=== PATIENT | male | born 1945 | race Caucasian/White ===

== ENCOUNTER → 2017-05-17 | Outpatient (CLI) | payer SELFPAY ==
--- NOTE | 2017-05-17 14:48 | XR ---
EXAMINATION TYPE: XR chest 2V DATE OF EXAM: 05/17/2017 COMPARISON: Prior chest x-ray 04/17/2011 HISTORY: Abnormal weight loss, hypertension, smoker TECHNIQUE: Frontal and lateral views of the chest are obtained. FINDINGS: Again noted is a spinal curvature. Cardiomediastinal silhouette, pulmonary vascularity and epifanio are stable. There is eventration of the right hemidiaphragm. No airspace disease, pneumothorax, or pleural effusion is evident. Postop changes noted to the abdomen. IMPRESSION: No acute cardiopulmonary process.
== END | disposition home or self-care (01) ==
LOC: RADXRYALE 11:25
PROVIDERS: ATTEND Family Medicine
DX: I10 Essential (primary) hypertension (principal); R63.4 Abnormal weight loss; F17.200 Nicotine dependence, unspecified, uncomplicated
CPT/HCPCS: 71046

== ENCOUNTER 2017-07-04 17:25 | Inpatient (IN) | payer OTHER ==
[2017-07-04] MEDS ORDERED: ACETAMINOPHEN TAB 500 MG TAB PO STA (18:07)
[2017-07-04] MEDS ORDERED: SODIUM CHLORIDE 0.9% 500 ML IV STA (18:07)
[2017-07-04] MEDS ORDERED: IBUPROFEN 600 MG TAB PO STA (18:07)
[2017-07-04] MEDS ORDERED: SODIUM CHLORIDE 0.9% 1,000 ML IV STA ×2 (18:07)
[2017-07-04 18:44] LABS: Basophils % (A) 0 %; Eosinophils % (A) 1 %; HGB 11.3 gm/dL (13.0-17.5); Lymphocytes % (A) 20 %; MCH 26.3 pg (25.0-35.0); MCHC 33.1 g/dL (31.0-37.0); Mean Platelet Volume 7.8; Monocytes # (A) 0.4 k/uL (0-1.0); Monocytes % (A) 8 %; Neutrophils # (A) 3.4 k/uL (1.3-7.7); Neutrophils % (A) 69 %; RBC 4.27 m/uL (4.30-5.90); RDW 14.6 % (11.5-15.5); WBC 4.9 k/uL (3.8-10.6)
[2017-07-04 18:48] LABS: Albumin 3.7 g/dL (3.5-5.0); Calcium 9.2 mg/dL (8.4-10.2); Magnesium 2.1 mg/dL (1.6-2.3); Phosphorus 3.9 mg/dL (2.5-4.5); Potassium 4.6 mmol/L (3.5-5.1); Total Bilirubin 0.7 mg/dL (0.2-1.3); Total Protein 8.5 g/dL (6.3-8.2)
[2017-07-04 18:51] LABS: MCV 79.6 fL (80.0-100.0); Platelet Count 276 k/uL (150-450)
[2017-07-04 19:03] LABS: Creatine Kinase 81 U/L (55-170)
[2017-07-04 19:16] LABS: Creatine Kinase MB <0.2 ng/mL (0.0-2.4); Troponin I 0.013 ng/mL (0.000-0.034)
[2017-07-04 19:29] LABS: INR 1.1 (<1.2); Partial Thromboplastin Time 25.3 sec (22.0-30.0); Prothrombin Time 10.7 sec (9.0-12.0)
--- NOTE | 2017-07-04 19:38 | XR ---
EXAMINATION TYPE: XR chest 2V DATE OF EXAM: 07/04/2017 COMPARISON: 05/17/2017 HISTORY: Chest pain TECHNIQUE: Frontal and lateral views of the chest are obtained. FINDINGS: There is no heart failure nor confluent pneumonic infiltrate. Heart appears borderline enl arged. Bony thorax is intact. There are chest leads. IMPRESSION: Borderline cardiomegaly. Atheromatous aorta. No active cardiopulmonary disease. No fuentes e.
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
[2017-07-04] MEDS ORDERED: LEVOFLOXACIN 750MG-D5W PMX 750 MG in DEXTROSE/WATER 1 150ML.BAG IVPB STA (20:08)
[2017-07-04 22:11] LABS: Amorphous Sediment,Urine Rare /hpf; Appearance,Urine Cloudy (Clear); Bacteria,Urine Moderate /hpf; Bilirubin,Urine Negative (Negative); Blood,Urine Moderate (Negative); Color,Urine Yellow; Glucose,Urine (UA) Negative (Negative); Granular Casts,Urine 3 /lpf (0); Hyaline Casts,Urine 7 /lpf (0-2); Ketones,Urine Negative (Negative); Leukocyte Esterase,Urine Large (Negative); Mucus,Urine Few /hpf; Nitrite,Urine Positive (Negative); PH, Urine 5.5 (5.0-8.0); Protein,Urine 1+ (Negative); Specific Gravity,Urine 1.014 (1.001-1.035); Urobilinogen,Urine <2.0 mg/dL (<2.0); WBC,Urine 22 /hpf (0-5)
[2017-07-05] MEDS: SODIUM CHLORIDE 0.9% 1,000 ML IV SCH ×5 (02:36→19:57)
[2017-07-05] MEDS ORDERED: PANTOPRAZOLE 40 MG/10 ML VIAL IV SCH (09:00)
[2017-07-05] MEDS: ENOXAPARIN 40 MG/0.4 ML SYRINGE SQ SCH (09:27)
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
[2017-07-05] MEDS: LEVOFLOXACIN 750 MG TAB PO SCH (20:41)
[2017-07-05] MEDS ORDERED: LEVOFLOXACIN 750MG-D5W PMX 750 MG in DEXTROSE/WATER 1 150ML.BAG IVPB SCH (21:00)
[2017-07-06] MEDS: SODIUM CHLORIDE 0.9% 1,000 ML IV SCH ×4 (07:19→21:15)
[2017-07-06] MEDS: PANTOPRAZOLE 40 MG TABLET PO SCH (07:20)
[2017-07-06 07:52] LABS: Basophils % (A) 1 %; Eosinophils % (A) 1 %; HCT 27.1 % (39.0-53.0); Lymphocytes # (A) 0.9 k/uL (1.0-4.8); Lymphocytes % (A) 31 %; MCH 26.6 pg (25.0-35.0); MCHC 33.3 g/dL (31.0-37.0); MCV 80.1 fL (80.0-100.0); Monocytes # (A) 0.2 k/uL (0-1.0); Monocytes % (A) 8 %; Neutrophils # (A) 1.6 k/uL (1.3-7.7); Neutrophils % (A) 56 %; Platelet Count 182 k/uL (150-450); RBC 3.39 m/uL (4.30-5.90); RDW 14.7 % (11.5-15.5); WBC 2.9 k/uL (3.8-10.6)
[2017-07-06 08:02] LABS: Potassium 3.9 mmol/L (3.5-5.1)
--- NOTE | 2017-07-06 09:02 | P.PN ---
Subjective Progress Note Date: 07/06/17 Patient is seen and examined by me at bedside No new complaints Objective - Vital Signs Vital signs: Vital Signs Temp 97.6 F 07/06/17 07:00 Pulse 59 L 07/06/17 07:59 Resp 17 07/06/17 07:00 BP 102/64 07/06/17 07:00 Pulse Ox 96 07/06/17 07:00 Intake & Output 07/05/17 07/06/17 07/06/17 18:59 06:59 18:59 Intake Total 1350 1725 Output Total 800 900 Balance 1350 925 -900 Weight 61.689 kg 61.689 kg Intake: Intake, IV Titration 1350 1725 Amount Levofloxacin 750Mg-D5w 150 Pmx 750 mg In Dextrose/ Water 1 150ml.bag @ 100 mls/hr IVPB Q24H [facility] Rx#: [id number] Sodium Chloride 0.9% 1, 1200 1725 000 ml @ 150 mls/hr IV . Q6H40M [facility] Rx#:[id number] Output: Urine 800 900 Other: Voiding Method Toilet Toilet Toilet Urinal Urinal Urinal # Voids 1 # Bowel Movements 0 -Constitutional: No acute distress, conversant, pleasant. Lethargic, alert awake oriented 3 Eyes: Anicteric sclerae, moist conjunctiva, no lid-lag PERRLA ENMT: NC/AT -Oropharynx clear, no erythema, exudates, dry mucous membranes Neck: Supple, FROM, no masses, or JVD No carotid bruits No thyromegaly Lungs: Clear to auscultation Clear to percussion Normal respiratory effort, no accessory muscle use Cardiovascular: Heart regular in rate and rhythm, No murmurs, gallops, or rubs No peripheral edema Abdominal: Soft Nontender, no guarding, rebound or rigidity Abdomen moving with respiration Normoactive bowel sounds No hepatomegaly, No splenomegaly No palpable mass Rectal exam done after patient gave verbal consent shows strong anal tone, no mass, no fecal impaction, no active bleeding No abdominal wall hernia noted Skin: Normal temperature, tone, texture, turgor No induration No subcutaneous nodules No rash, lesions No ulcers Extremities: No digital cyanosis No clubbing Pedal pulses intact and symmetrical Radial pulses intact and symmetrical Normal gait and station No calf tenderness Psychiatric: Alert and oriented to person, place and time Appropriate affect Intact judgement Neuro: Muscles Strength 5/5 in all 4 extremities, normal symmetry is noted between any of the 4 extremities Sensation to light touch grossly present throughout Cranial nerves II-XII grossly intact No focal sensory deficits Musculoskeletal no back tenderness, no tenderness noted in any part of his extremities or trunk - Labs CBC & Chem 7: 07/06/17 07:26 07/06/17 07:26 Labs: Abnormal Lab Results - Last 24 Hours (Table) 07/06/17 07/06/17 Range/Units 07:26 07:26 WBC 2.9 L (3.8-10.6) k/uL RBC 3.39 L (4.30-5.90) m/uL Hgb 9.0 L D (13.0-17.5) gm/dL Hct 27.1 L (39.0-53.0) % Lymphocytes # 0.9 L (1.0-4.8) k/uL Chloride 113 H (98-107) mmol/L Carbon Dioxide 21 L (22-30) mmol/L Calcium 8.0 L (8.4-10.2) mg/dL Microbiology - Last 24 Hours (Table) 07/04/17 18:48 Blood Culture Gram Stain - Preliminary Blood 07/04/17 18:48 Blood Culture - Final Blood 07/04/17 22:00 Urine Culture - Preliminary Urine,Catheterized Assessment and Plan Assessment: 1. UTI, continue witH levofloxacin, positive blood culture for gram-positive cocci possible contamination, recheck blood culture, no leukocytosis, pending ID consult, repeat blood cultures pending 2. Patient has reactive HIV test from 05/17/17, pending ID consults His leukopenia of 2.9 most likely related to his infection with HIV and UTI, continue to monitor 3. Acute kidney injury with creatinine went up from 1to 1.3, now is down to 1.14 [with an normal limits] continue with IV fluids and decrease the rate from 1 50 mL/h 200 mL per hour Pending PT/OT DVT prophylaxis continue with Lovenox
[2017-07-06] MEDS: ENOXAPARIN 40 MG/0.4 ML SYRINGE SQ SCH (09:13)
[2017-07-06] MEDS ORDERED: SODIUM CHLORIDE 0.9% 1,000 ML IV SCH (09:15)
[2017-07-06] MEDS: DAPTOmycin 500 MG in SODIUM CHLORIDE 0.9% 50 ML IV SCH (16:35)
[2017-07-06] MEDS: LEVOFLOXACIN 750 MG TAB PO SCH (21:15)
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
[2017-07-07] MEDS: SODIUM CHLORIDE 0.9% 1,000 ML IV SCH ×2 (07:28→17:05)
[2017-07-07 07:30] LABS: Basophils % (A) 0 %; Eosinophils # (A) 0.1 k/uL (0-0.7); Eosinophils % (A) 2 %; HCT 27.6 % (39.0-53.0); Lymphocytes # (A) 0.8 k/uL (1.0-4.8); Lymphocytes % (A) 31 %; MCH 26.7 pg (25.0-35.0); MCHC 32.5 g/dL (31.0-37.0); MCV 82.1 fL (80.0-100.0); Mean Platelet Volume 7.1; Monocytes # (A) 0.2 k/uL (0-1.0); Monocytes % (A) 7 %; Neutrophils # (A) 1.5 k/uL (1.3-7.7); Neutrophils % (A) 57 %; Platelet Count 206 k/uL (150-450); Poikilocytosis Slight; RBC 3.36 m/uL (4.30-5.90); WBC 2.6 k/uL (3.8-10.6)
[2017-07-07 07:41] LABS: Anion Gap 10 mmol/L; Blood Urea Nitrogen 18 mg/dL (9-20); Calcium 8.1 mg/dL (8.4-10.2); Carbon Dioxide 20 mmol/L (22-30); Chloride 114 mmol/L (98-107); Glucose 85 mg/dL (74-99); Potassium 3.7 mmol/L (3.5-5.1); Sodium 144 mmol/L (137-145)
[2017-07-07] MEDS: STRIBILD PO SCH (08:09)
[2017-07-07] MEDS: PANTOPRAZOLE 40 MG TABLET PO SCH (08:13)
[2017-07-07] MEDS: ENOXAPARIN 40 MG/0.4 ML SYRINGE SQ SCH (08:13)
--- NOTE | 2017-07-07 09:08 | P.PN ---
Subjective Progress Note Date: 07/07/17 Patient is seen and examined by me at bedside No new complaints, patient is still feeling weak Objective - Vital Signs Vital signs: Vital Signs Temp 98.1 F 07/07/17 07:00 Pulse 60 07/07/17 08:00 Resp 16 07/07/17 08:00 BP 163/61 07/07/17 07:00 Pulse Ox 95 07/07/17 07:00 Intake & Output 07/06/17 07/07/17 07/07/17 18:59 06:59 18:59 Intake Total 1780 1400 Output Total 1500 500 400 Balance 280 900 -400 Weight 61.689 kg 61.689 kg Intake: Intake, IV Titration 1300 800 Amount Levofloxacin 750Mg-D5w 100 Pmx 750 mg In Dextrose/ Water 1 150ml.bag @ 100 mls/hr IVPB Q24H [facility] Rx#: [id number] Sodium Chloride 0.9% 1, 1200 800 000 ml @ 100 mls/hr IV . Q10H [facility] Rx#:[id number] Oral 480 600 Output: Urine 1500 500 400 Other: Voiding Method Toilet Toilet Toilet Urinal Urinal Urinal # Voids 3 2 1 # Bowel Movements 2 1 - Exam Constitutional: No acute distress, conversant, pleasant Eyes: Anicteric sclerae, moist conjunctiva, no lid-lag PERRLA ENMT: NC/AT Oropharynx clear, no erythema, exudates Neck: Supple, FROM, no masses, or JVD No carotid bruits No thyromegaly Lungs: Clear to auscultation Clear to percussion Normal respiratory effort, no accessory muscle use Cardiovascular: Heart regular in rate and rhythm, No murmurs, gallops, or rubs No peripheral edema Abdominal: Soft Nontender, no guarding, rebound or rigidity Abdomen moving with respiration Normoactive bowel sounds No hepatomegaly, No splenomegaly No palpable mass No abdominal wall hernia noted Skin: Normal temperature, tone, texture, turgor No induration No subcutaneous nodules No rash, lesions No ulcers Extremities: No digital cyanosis No clubbing Pedal pulses intact and symmetrical Radial pulses intact and symmetrical Normal gait and station No calf tenderness Psychiatric: Alert and oriented to person, place and time Appropriate affect Intact judgement Neuro: Muscles Strength 5/5 in all 4 extremities Sensation to light touch grossly present throughout Cranial nerves II-XII grossly intact No focal sensory deficits - Labs CBC & Chem 7: 07/07/17 07:00 07/07/17 07:00 Labs: Abnormal Lab Results - Last 24 Hours (Table) 07/07/17 07/07/17 Range/Units 07:00 07:00 WBC 2.6 L (3.8-10.6) k/uL RBC 3.36 L (4.30-5.90) m/uL Hgb 9.0 L (13.0-17.5) gm/dL Hct 27.6 L (39.0-53.0) % Lymphocytes # 0.8 L (1.0-4.8) k/uL Chloride 114 H (98-107) mmol/L Carbon Dioxide 20 L (22-30) mmol/L Calcium 8.1 L (8.4-10.2) mg/dL Microbiology - Last 24 Hours (Table) 07/04/17 22:00 Urine Culture - Final Urine,Catheterized Staphylococcus aureus 07/05/17 17:29 Blood Culture Gram Stain - Preliminary Blood Blood Culture - Preliminary Presumptive Staph aureus 07/05/17 19:29 Blood Culture - Final Blood 07/04/17 18:48 Blood Culture Gram Stain - Preliminary Blood Blood Culture - Preliminary Presumptive Staph aureus Assessment and Plan Assessment: 1. UTI, continue witH levofloxacin, 2. positive blood culture for gram-positive cocci possible contamination, no leukocytosis, ID consult is appreciated, pt is started on daptomycin , repeat blood cultures pending 2. Patient has reactive HIV test from 05/17/17, ID consults, is appreciated started on Stribilid His leukopenia of 2.9 most likely related to his infection with HIV and UTI, continue to monitor 3. Acute kidney injury with creatinine went up from 1to 1.3, now is down to 0.9 [with an normal limits] continue with IV fluids and decrease the rate at 75 ml/hr Plan is discussed with patient and he verbalized understanding and acceptance
--- NOTE | 2017-07-07 10:18 | US ---
EXAMINATION TYPE: US kidneys/renal and bladder DATE OF EXAM: 07/07/2017 COMPARISON: NONE CLINICAL HISTORY: obstruction with UTI staph infection. Patient states just having middle back pain EXAM MEASUREMENTS: Right Kidney: 12.5 x 5.4 x 5.2 cm Left Kidney: 12.7 x 5.1 x 5.3 cm Right Kidney: No hydronephrosis or masses seen. Renal sinus appears echogenic. Left Kidney: No hydronephrosis or masses seen. Renal sinus appears echogenic. Bladder: wnl, distended Bilateral Jets not seen IMPRESSION: 1. NORMAL RENAL ULTRASOUND. 2. FAILURE TO VISUALIZE EITHER URETERAL JET.
--- NOTE | 2017-07-07 15:16 | ECHOF ---
Referral Reason:Endocarditis MEASUREMENTS -------- HEIGHT: 175.3 cm WEIGHT: 61.7 kg BP: 169/64 RVIDd: 3.3 cm (< 3.3) IVSd: 1.5 cm (0.6 - 1.1) LVIDd: 4.8 cm (3.9 - 5.3) LVPWd: 1.4 cm (0.6 - 1.1) IVSs: 2.1 cm LVIDs: 2.9 cm LVPWs: 1.8 cm LA Diam: 3.6 cm (2.7 - 3.8) LAESV Index (A-L): 39.21 ml/m Ao Diam: 3.5 cm (2.0 - 3.7) AV Cusp: 1.0 cm (1.5 - 2.6) MV EXCURSION: 13.666 mm (> 18.000) MV EF SLOPE: 39 mm/s (70 - 150) EPSS: 0.8 cm MV E Ruben: 0.71 m/s MV DecT: 289 ms MV A Ruben: 0.78 m/s MV E/A Ratio: 0.92 AV maxP.11 mmHg AV meanP.64 mmHg RAP: 5.00 mmHg RVSP: 31.59 mmHg FINDINGS -------- Sinus rhythm. This was a technically good study. The left ventricular size is normal. There is moderate concentric left ventricular hypertrophy. O verall left ventricular systolic function is normal with, an EF between 55 - 60 %. The right ventricle is mildly enlarged. LA is moderately dilated 34-39 ml/m2 The right atrium is normal in size. There is moderate aortic valve sclerosis. There is mild aortic stenosis present. Peak/mean gradie nt across the Aortic Valve is 28.11mmHg / 13.64mmHg. Mild mitral annular calcification present. Mild mitral regurgitation is present. Mild tricuspid regurgitation present. Right ventricular systolic pressure is normal at < 35 mmHg. Trace/mild (physiologic) pulmonic regurgitation. The aortic root size is normal. Normal inferior vena cava with normal inspiratory collapse consistent with estimated right atrial pre ssure of 5 mmHg. There is no pericardial effusion. CONCLUSIONS -------- 1. Sinus rhythm. 2. This was a technically good study. 3. The left ventricular size is normal. 4. There is moderate concentric left ventricular hypertrophy. 5. Overall left ventricular systolic function is normal with, an EF between 55 - 60 %. 6. The right ventricle is mildly enlarged. 7. LA is moderately dilated 34-39 ml/m2 8. There is moderate aortic valve sclerosis. 9. There is mild aortic stenosis present. 10. Peak/mean gradient across the Aortic Valve is 28.11mmHg / 13.64mmHg. 11. Mild mitral annular calcification present. 12. Mild mitral regurgitation is present. 13. Mild tricuspid regurgitation present. 14. Right ventricular systolic pressure is normal at < 35 mmHg. 15. Trace/mild (physiologic) pulmonic regurgitation. 16. The aortic root size is normal. 17. Normal inferior vena cava with normal inspiratory collapse consistent with estimated right atrial pressure of 5 mmHg. 18. There is no pericardial effusion. EIGHT SECTION BLOWER: Elizabeth Yates RDCS
[2017-07-07] MEDS: DAPTOmycin 500 MG in SODIUM CHLORIDE 0.9% 50 ML IV SCH (17:01)
[2017-07-07] MEDS: LEVOFLOXACIN 750 MG TAB PO SCH (22:11)
[2017-07-08 07:23] LABS: Basophils % (A) 1 %; Eosinophils # (A) 0.1 k/uL (0-0.7); Eosinophils % (A) 2 %; HCT 27.4 % (39.0-53.0); Lymphocytes % (A) 31 %; MCH 26.3 pg (25.0-35.0); MCHC 32.9 g/dL (31.0-37.0); MCV 79.9 fL (80.0-100.0); Monocytes # (A) 0.2 k/uL (0-1.0); Monocytes % (A) 7 %; Neutrophils # (A) 1.8 k/uL (1.3-7.7); Neutrophils % (A) 57 %; Platelet Count 205 k/uL (150-450); Poikilocytosis Slight; RBC 3.43 m/uL (4.30-5.90); RDW 14.9 % (11.5-15.5); WBC 3.1 k/uL (3.8-10.6)
[2017-07-08 07:34] LABS: Calcium 8.3 mg/dL (8.4-10.2); Potassium 3.3 mmol/L (3.5-5.1)
[2017-07-08] MEDS: ENOXAPARIN 40 MG/0.4 ML SYRINGE SQ SCH (08:34)
[2017-07-08] MEDS: STRIBILD PO SCH (08:35)
[2017-07-08] MEDS: PANTOPRAZOLE 40 MG TABLET PO SCH (08:35)
[2017-07-08] MEDS: POTASSIUM CHLORIDE ER 20 MEQ TAB.ER PO SCH ×2 (11:18→16:50)
[2017-07-08] MEDS: amLODIPine 5 MG TAB PO SCH (11:18)
[2017-07-08] MEDS: SODIUM CHLORIDE 0.9% 1,000 ML IV SCH ×3 (15:15→23:40)
--- NOTE | 2017-07-08 15:37 | P.PN ---
Subjective Patient seen and examined by me at bedside No new complaints, patient feels stronger little bit today Objective - Vital Signs Vital signs: Vital Signs Temp 99.0 F 07/08/17 08:05 Pulse 60 07/08/17 11:15 Resp 16 07/08/17 08:05 BP 179/81 07/08/17 11:15 Pulse Ox 96 07/08/17 08:05 Intake & Output 07/07/17 07/08/17 07/08/17 18:59 06:59 18:59 Intake Total 1200 800 Output Total 400 400 Balance -400 800 800 Weight 61.689 kg Intake: Intake, IV Titration 800 800 Amount Sodium Chloride 0.9% 1, 800 800 000 ml @ 100 mls/hr IV . Q10H [facility] Rx#:[id number] Oral 400 Output: Urine 400 400 Other: Voiding Method Toilet Toilet Urinal Urinal # Voids 1 2 - Exam Constitutional: No acute distress, conversant, pleasant Eyes: Anicteric sclerae, moist conjunctiva, no lid-lag PERRLA ENMT: NC/AT Oropharynx clear, no erythema, exudates Neck: Supple, FROM, no masses, or JVD No carotid bruits No thyromegaly Lungs: Clear to auscultation Clear to percussion Normal respiratory effort, no accessory muscle use Cardiovascular: Heart regular in rate and rhythm, No murmurs, gallops, or rubs No peripheral edema Abdominal: Soft Nontender, no guarding, rebound or rigidity Abdomen moving with respiration Normoactive bowel sounds No hepatomegaly, No splenomegaly No palpable mass No abdominal wall hernia noted Skin: Normal temperature, tone, texture, turgor No induration No subcutaneous nodules No rash, lesions No ulcers Extremities: No digital cyanosis No clubbing Pedal pulses intact and symmetrical Radial pulses intact and symmetrical Normal gait and station No calf tenderness Psychiatric: Alert and oriented to person, place and time Appropriate affect Intact judgement Neuro: Muscles Strength 5/5 in all 4 extremities Sensation to light touch grossly present throughout Cranial nerves II-XII grossly intact No focal sensory deficits - Labs CBC & Chem 7: 07/08/17 06:52 07/08/17 06:52 Labs: Abnormal Lab Results - Last 24 Hours (Table) 07/08/17 07/08/17 Range/Units 06:52 06:52 WBC 3.1 L (3.8-10.6) k/uL RBC 3.43 L (4.30-5.90) m/uL Hgb 9.0 L (13.0-17.5) gm/dL Hct 27.4 L (39.0-53.0) % MCV 79.9 L (80.0-100.0) fL Potassium 3.3 L (3.5-5.1) mmol/L Chloride 111 H (98-107) mmol/L Calcium 8.3 L (8.4-10.2) mg/dL Microbiology - Last 24 Hours (Table) 07/06/17 09:39 Blood Culture - Preliminary Blood No Growth after 48 hours 07/05/17 17:29 Blood Culture Gram Stain - Final Blood Blood Culture - Final Staphylococcus aureus Assessment and Plan Plan: Assessment: 1. UTI, continue witH levofloxacin, 2. positive blood culture for staph aureus, no leukocytosis, ID consult is appreciated, pt is started on daptomycin , repeat blood cultures no growth after 24 hours 2. Patient has reactive HIV test from 05/17/17, ID consults, is appreciated started on Stribilid His leukopenia most likely related to his infection with HIV and UTI, continue to monitor 3. Acute kidney injury with creatinine went up from 1to 1.3, now is down to 0.9 [with an normal limits] continue with IV fluids and decrease the rate at 75 ml/hr 4. Hypertension, start Norvasc 5 mg Plan is discussed with patient and he verbalized understanding and acceptance
[2017-07-08] MEDS: ceFAZolin IN SWFI 2 GM/20 ML SYRINGE IVP SCH ×2 (16:51→23:40)
[2017-07-09 07:56] LABS: Basophils % (A) 0 %; Eosinophils # (A) 0.1 k/uL (0-0.7); Eosinophils % (A) 1 %; HCT 29.2 % (39.0-53.0); HGB 9.4 gm/dL (13.0-17.5); Lymphocytes # (A) 1.1 k/uL (1.0-4.8); Lymphocytes % (A) 28 %; MCH 26.1 pg (25.0-35.0); MCHC 32.1 g/dL (31.0-37.0); MCV 81.3 fL (80.0-100.0); Monocytes # (A) 0.3 k/uL (0-1.0); Monocytes % (A) 8 %; Neutrophils # (A) 2.3 k/uL (1.3-7.7); Neutrophils % (A) 61 %; Platelet Count 198 k/uL (150-450); RDW 15.3 % (11.5-15.5); WBC 3.8 k/uL (3.8-10.6)
[2017-07-09 08:00] LABS: Calcium 8.4 mg/dL (8.4-10.2); Magnesium 1.7 mg/dL (1.6-2.3); Potassium 3.6 mmol/L (3.5-5.1)
[2017-07-09] MEDS: SODIUM CHLORIDE 0.9% 1,000 ML IV SCH ×2 (08:31→20:42)
[2017-07-09] MEDS: PANTOPRAZOLE 40 MG TABLET PO SCH (08:31)
[2017-07-09] MEDS: amLODIPine 5 MG TAB PO SCH (08:31)
[2017-07-09] MEDS: ENOXAPARIN 40 MG/0.4 ML SYRINGE SQ SCH (08:31)
[2017-07-09] MEDS: STRIBILD PO SCH (08:42)
[2017-07-09] MEDS: ceFAZolin IN SWFI 2 GM/20 ML SYRINGE IVP SCH ×2 (09:22→17:30)
[2017-07-09] MEDS ORDERED: POTASSIUM CHLORIDE ER 20 MEQ TAB.ER PO STA (09:28)
--- NOTE | 2017-07-09 09:30 | P.PN ---
Subjective Patient seen and examined by me at bedside No new complaint Patient feels stronger Objective - Vital Signs Vital signs: Vital Signs Temp 98.7 F 07/09/17 07:58 Pulse 65 07/09/17 07:58 Resp 16 07/09/17 07:58 BP 161/86 07/09/17 07:58 Pulse Ox 96 07/09/17 07:58 Intake & Output 07/08/17 07/09/17 07/09/17 18:59 06:59 18:59 Intake Total 800 825 Output Total 200 Balance 800 825 -200 Intake: Intake, IV Titration 800 825 Amount Sodium Chloride 0.9% 1, 800 825 000 ml @ 100 mls/hr IV . Q10H [facility] Rx#:[id number] Output: Urine 200 Other: Voiding Method Toilet Toilet Urinal Urinal - Exam Constitutional: No acute distress, conversant, pleasant Eyes: Anicteric sclerae, moist conjunctiva, no lid-lag PERRLA ENMT: NC/AT Oropharynx clear, no erythema, exudates Neck: Supple, FROM, no masses, or JVD No carotid bruits No thyromegaly Lungs: Clear to auscultation Clear to percussion Normal respiratory effort, no accessory muscle use Cardiovascular: Heart regular in rate and rhythm, No murmurs, gallops, or rubs No peripheral edema Abdominal: Soft Nontender, no guarding, rebound or rigidity Abdomen moving with respiration Normoactive bowel sounds No hepatomegaly, No splenomegaly No palpable mass No abdominal wall hernia noted Skin: Normal temperature, tone, texture, turgor No induration No subcutaneous nodules No rash, lesions No ulcers Extremities: No digital cyanosis No clubbing Pedal pulses intact and symmetrical Radial pulses intact and symmetrical Normal gait and station No calf tenderness Psychiatric: Alert and oriented to person, place and time Appropriate affect Intact judgement Neuro: Muscles Strength 5/5 in all 4 extremities Sensation to light touch grossly present throughout Cranial nerves II-XII grossly intact No focal sensory deficits - Labs CBC & Chem 7: 07/09/17 07:25 07/09/17 07:25 Labs: Abnormal Lab Results - Last 24 Hours (Table) 07/09/17 07/09/17 Range/Units 07:25 07:25 RBC 3.60 L (4.30-5.90) m/uL Hgb 9.4 L (13.0-17.5) gm/dL Hct 29.2 L (39.0-53.0) % Chloride 112 H (98-107) mmol/L Carbon Dioxide 20 L (22-30) mmol/L Microbiology - Last 24 Hours (Table) 07/06/17 09:39 Blood Culture - Preliminary Blood No Growth after 48 hours 07/05/17 17:29 Blood Culture Gram Stain - Final Blood Blood Culture - Final Staphylococcus aureus Assessment and Plan Plan: 1. UTI, continue witH cefazolin 2. positive blood culture for staph aureus, no leukocytosis, ID consult is appreciated, s/p daptomycin , continue witH cefazolinrepeat blood cultures no growth after 24 hours 2. Patient has reactive HIV test from 05/17/17, ID consults, is appreciated started on Stribilid His leukopenia most likely related to his infection with HIV and UTI, continue to monitor 3. Acute kidney injury with creatinine went up from 1to 1.3, now is down to 0.9 [with an normal limits] continue with IV fluids and decrease the rate at 75 ml/hr 4. Hypertension, start Norvasc 10 mg
[2017-07-09] MEDS ORDERED: MAGNESIUM SULFATE-D5W PMX 1 GM in DEXTROSE/WATER 1 100ML.BAG IVPB ONE (10:00)
--- NOTE | 2017-07-09 22:53 | P.PN ---
Subjective Progress Note Date: 07/09/17 Principal diagnosis: fever 71 year old male relates to a several week history of declining overall health. He started to feel weaker, difficulty with eating but denies nausea or emesis disorderly poor appetite. He also related that he was having some urinary symptoms with cloudy malodorous urine and some discomfort. Because of his significant worsening status weakness and even some confusion as per the he was brought to the emergency center and was admitted with concerns to sepsis. The patient then had evidence of a positive blood culture and a positive urine culture and with this the infectious diseases consultation was requested. The patient himself is somewhat of a poor historian and I do have the opportunity to talk to his significant other. The patient apparently has a history of known HIV positivity for some time. However he had called it a false positive test for some time. In his significant other have been tested and she is negative. The patient however is now had approximately 50 pound weight loss, please had significant worsening of his overall status and even his mentation has worsened disease become weak and quite feeble. This apparently is quite different than his usual health. 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 Apparently it's only in the last 6 months that he's had such a rapid decline of his status. July 09 2017 reveals the patient to more comfortable. His fevers and chills and improved. Denies acute new urinary symptoms. Wheezing is improved. He has many questions which were answered. Objective - Vital Signs Vital signs: Vital Signs Temp 97.9 F 07/09/17 21:15 Pulse 67 07/09/17 21:15 Resp 18 07/09/17 21:15 BP 156/74 07/09/17 21:15 Pulse Ox 96 07/09/17 21:15 Intake & Output 07/09/17 07/09/17 07/10/17 06:59 18:59 06:59 Intake Total 825 900 Output Total 700 Balance 825 200 Intake: Intake, IV Titration 825 900 Amount Magnesium Sulfate-D5w Pmx 100 1 gm In Dextrose/Water 1 100ml.bag @ 100 mls/hr IVPB ONCE ONE Rx#: [id number] Sodium Chloride 0.9% 1, 825 800 000 ml @ 100 mls/hr IV . Q10H [facility] Rx#:[id number] Output: Urine 700 Other: Voiding Method Toilet Toilet Urinal Urinal # Voids 1 - Exam 71-year-old male with a very thin build HEENT: Anicteric conjunctiva are pink and moist nasal mucosa grossly intact without significant lesions, there is no thrush. Dentition is poor Neck: The neck is supple without significant lymphadenopathy or thyromegaly. Lungs: Symmetrical air entry is noted with expiratory wheezes but no migue bronchial sounds no dullness or egophony Heart: Regular rate and rhythm with an audible S1-S2, no S3 no S4. There is no significant murmur click or rub, PMI was nondisplaced. Abdomen: Scaphoid, Positive bowel sounds soft and nontender without palpable masses or organomegaly. There was no guarding or rebound. Extremities: The upper extremities have excellent pulses they are symmetric, no significant petechiae or telangiectasia. No splinter hemorrhages were noted. The lower extremities are free from significant edema. The peripheral pulses were 2+ and symmetric. Neuro: Awake alert oriented to person and place, able to follow simple commands. Does not have acute gross focal sensory motor deficits, recall is poor - Labs CBC & Chem 7: 07/09/17 07:25 07/09/17 07:25 Labs: Abnormal Lab Results - Last 24 Hours (Table) 07/09/17 07/09/17 Range/Units 07:25 07:25 RBC 3.60 L (4.30-5.90) m/uL Hgb 9.4 L (13.0-17.5) gm/dL Hct 29.2 L (39.0-53.0) % Chloride 112 H (98-107) mmol/L Carbon Dioxide 20 L (22-30) mmol/L Microbiology - Last 24 Hours (Table) 07/06/17 09:39 Blood Culture - Preliminary Blood No Growth after 72 hours Laboratory Results WBC 3.8 k/uL (3.8-10.6) 07/09/17 07:25 RBC 3.60 m/uL (4.30-5.90) L 07/09/17 07:25 Hgb 9.4 gm/dL (13.0-17.5) L 07/09/17 07:25 Hct 29.2 % (39.0-53.0) L 07/09/17 07:25 MCV 81.3 fL (80.0-100.0) 07/09/17 07:25 MCH 26.1 pg (25.0-35.0) 07/09/17 07:25 MCHC 32.1 g/dL (31.0-37.0) 07/09/17 07:25 RDW 15.3 % (11.5-15.5) 07/09/17 07:25 Plt Count 198 k/uL (150-450) 07/09/17 07:25 Neutrophils % 61 % 07/09/17 07:25 Lymphocytes % 28 % 07/09/17 07:25 Monocytes % 8 % 07/09/17 07:25 Eosinophils % 1 % 07/09/17 07:25 Basophils % 0 % 07/09/17 07:25 Neutrophils # 2.3 k/uL (1.3-7.7) 07/09/17 07:25 Lymphocytes # 1.1 k/uL (1.0-4.8) 07/09/17 07:25 Monocytes # 0.3 k/uL (0-1.0) 07/09/17 07:25 Eosinophils # 0.1 k/uL (0-0.7) 07/09/17 07:25 Basophils # 0.0 k/uL (0-0.2) 07/09/17 07:25 Poikilocytosis Slight 07/08/17 06:52 PT 10.7 sec (9.0-12.0) 07/04/17 18:48 INR 1.1 (<1.2) 07/04/17 18:48 APTT 25.3 sec (22.0-30.0) 07/04/17 18:48 Sodium 144 mmol/L (137-145) 07/09/17 07:25 Potassium 3.6 mmol/L (3.5-5.1) 07/09/17 07:25 Chloride 112 mmol/L (98-107) H 07/09/17 07:25 Carbon Dioxide 20 mmol/L (22-30) L 07/09/17 07:25 Anion Gap 12 mmol/L 07/09/17 07:25 BUN 13 mg/dL (9-20) 07/09/17 07:25 Creatinine 0.99 mg/dL (0.66-1.25) 07/09/17 07:25 Est GFR (CKD-EPI)AfAm 89 (>60 ml/min/1.73 sqM) 07/09/17 07:25 Est GFR (CKD-EPI)NonAf 77 (>60 ml/min/1.73 sqM) 07/09/17 07:25 Glucose 92 mg/dL (74-99) 07/09/17 07:25 Plasma Lactic Acid Robb 0.9 mmol/L (0.7-2.0) 07/04/17 18:48 Calcium 8.4 mg/dL (8.4-10.2) 07/09/17 07:25 Phosphorus 3.9 mg/dL (2.5-4.5) 07/04/17 18:24 Magnesium 1.7 mg/dL (1.6-2.3) 07/09/17 07:25 Total Bilirubin 0.7 mg/dL (0.2-1.3) 07/04/17 18:24 AST 22 U/L (17-59) 07/04/17 18:24 ALT 13 U/L (21-72) L 07/04/17 18:24 Alkaline Phosphatase 139 U/L (38-126) H 07/04/17 18:24 Total Creatine Kinase 81 U/L (55-170) 07/04/17 18:24 CK-MB (CK-2) <0.2 ng/mL (0.0-2.4) 07/04/17 18:24 CK-MB (CK-2) Rel Index 07/04/17 18:24 Troponin I 0.013 ng/mL (0.000-0.034) 07/04/17 18:24 Total Protein 8.5 g/dL (6.3-8.2) H 07/04/17 18:24 Albumin 3.7 g/dL (3.5-5.0) 07/04/17 18:24 Urine Color Yellow 07/04/17 22:00 Urine Appearance Cloudy (Clear) 07/04/17 22:00 Urine pH 5.5 (5.0-8.0) 07/04/17 22:00 Ur Specific [place] 1.014 (1.001-1.035) 07/04/17 22:00 Urine Protein 1+ (Negative) H 07/04/17 22:00 Urine Glucose (UA) Negative (Negative) 07/04/17 22:00 Urine Ketones Negative (Negative) 07/04/17 22:00 Urine Blood Moderate (Negative) H 07/04/17 22:00 Urine Nitrite Positive (Negative) 07/04/17 22:00 Urine Bilirubin Negative (Negative) 07/04/17 22:00 Urine Urobilinogen <2.0 mg/dL (<2.0) 07/04/17 22:00 Ur Leukocyte Esterase Large (Negative) H 07/04/17 22:00 Urine WBC 22 /hpf (0-5) H 07/04/17 22:00 Urine WBC Clumps Rare /hpf (None) H 07/04/17 22:00 Amorphous Sediment Rare /hpf (None) H 07/04/17 22:00 Urine Bacteria Moderate /hpf (None) H 07/04/17 22:00 Hyaline Casts 7 /lpf (0-2) H 07/04/17 22:00 Granular Casts 3 /lpf (0) 07/04/17 22:00 Urine Mucus Few /hpf (None) H 07/04/17 22:00 Influenza Type A RNA Not Detected (Not Detectd) 07/04/17 18:30 Influenza Type B (PCR) Not Detected (Not Detectd) 07/04/17 18:30 Microbiology 07/06/17 09:39 Blood Blood Culture - Preliminary No Growth after 72 hours 07/05/17 17:29 Blood Blood Culture Gram Stain - Final 07/05/17 17:29 Blood Blood Culture - Final Staphylococcus aureus 07/04/17 18:48 Blood Blood Culture Gram Stain - Final 07/04/17 18:48 Blood Blood Culture - Final Staphylococcus aureus 07/04/17 22:00 Urine,Catheterized Urine Culture - Final Staphylococcus aureus 07/05/17 19:29 Blood Blood Culture - Final 07/04/17 18:48 Blood Blood Culture - Final Assessment and Plan (1) Bacteremia due to Staphylococcus aureus Narrative/Plan: 71-year-old male presents to Hospital feeling very poorly with evidence of underlying infection. Urinalysis was abnormal and urine culture as well as blood cultures are noted to be positive. Laboratories now relating that staph aureus has been isolated. With this intravenous antibiotic therapy with daptomycin was initiated given the patient's elevated creatinine and desire to avoid vancomycin therapy given his significant and worsening frailty. Follow blood cultures are been requested. The patient does have outpatient testing shows evidence of positive HIV status which is confirmed and a very low CD4 count of 89 which does categorize him as AIDS. This is discussed with the patient and his significant other. They impaired that he is treated is discussed and without treatment with his current illnesses would likely result in rapid decline and his demise. The patient seems to be willing to initiate therapy with Stribild and this is requested. Baseline viral load and genotype is also requested. Being that he's never been treated Stribild likely would be an effective choice. As noted follow blood cultures are requested. If further positive blood cultures are found then and echocardiogram will be needed. The patient and significant other denies history of injection drug use. The potential renal source of his bacteremia is noted and renal ultrasound will be requested given the current level of illness. 07/09/2017 reveals the patient to be feeling somewhat better. Renal ultrasound has been done without evidence of any obstruction in the urinary system. He is denying any new urinary symptoms and his fevers and chills are resolved. Initial levels improving. But he still feels quite ill overall. It is time we discussed that he has MSSA bacteremia likely in the bases of his renal infection. We'll need to weeks of intravenous antibiotic therapy and this can be transitioned Rocephin when he is discharged home. Midline catheter was requested for his IV access given that it's 2 weeks and antibiotic his Rocephin. He'll come to [facility]. Working with the social work specialist and case management today given the significant difficulties with his history of appointment and his insurance status, he is 71 and should have Medicare. We are working with the local ADAP program to ensure that he is enrolled lability received his oral HIV medications shortly after his discharge. Stribild is chosen if possible. Patient is aware that we're waiting for all these arrangements to be made for him to have optimal therapy. 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
[2017-07-10] MEDS: ceFAZolin IN SWFI 2 GM/20 ML SYRINGE IVP SCH ×3 (01:07→15:38)
[2017-07-10] MEDS: SODIUM CHLORIDE 0.9% 1,000 ML IV SCH ×2 (04:56→12:44)
[2017-07-10] MEDS: STRIBILD PO SCH (08:01)
[2017-07-10] MEDS: PANTOPRAZOLE 40 MG TABLET PO SCH (08:16)
[2017-07-10] MEDS: amLODIPine 10 MG TAB PO SCH (08:17)
[2017-07-10] MEDS: ENOXAPARIN 40 MG/0.4 ML SYRINGE SQ SCH (08:20)
[2017-07-10 13:35] LABS: HIV-1 RNA DETECTED (Not detected)
[2017-07-10] MEDS ORDERED: cloNIDine HCL 0.1 MG TAB PO PRN (20:15)
--- NOTE | 2017-07-10 21:16 | CT ---
EXAMINATION TYPE: CT brain wo con DATE OF EXAM: 07/10/2017 COMPARISON: NONE HISTORY: Dementia. CT DLP: 1060.[address] of the brain was performed. The ventricles, basal cisterns and sulci overlying the cerebral convexities demonstrate mild enlargem ent. There is no evidence for intracranial hemorrhage or sulcal effacement. There is decreased attenuation about the periventricular white matter and deep white matter of both c erebral hemispheres, compatible with chronic small vessel ischemia. Differential diagnosis does inclu de demyelination. No mass effects are seen.No midline shift. Osseous calvarium is intact. If symptoms persist consider MRI. IMPRESSION: 1. Age related atrophic and chronic small vessel ischemic change without acute intracranial process s een at this time.
[2017-07-10] MEDS: cloNIDine HCL 0.1 MG TAB PO SCH (21:17)
--- NOTE | 2017-07-10 21:50 | PN ---
PROGRESS NOTE DATE OF SERVICE: 07/10/2017 This 71-year-old gentleman with a past medical history of multiple medical problems was admitted with UTI and also Staph aureus sepsis. The patient also had recent HIV positive testing. The patient is scheduled to have a midline PICC line and outpatient antibiotics. The patient being closely monitored at this time. Some social issues have also being addressed by social workers and CD4 count remains very low. Infectious disease Dr. Barbour is following the patient and recommending outpatient evaluation and treatment including continued HIV treatment. PAST MEDICAL HISTORY: Reviewed. REVIEW OF SYSTEMS: Cardiovascular: No angina or palpitations. Respiration as mentioned. GI: As mentioned earlier. no dysuria. Nervous system: No numbness or weakness. CURRENT MEDICATIONS: Current medications are reviewed and include: 1. Norvasc 10 mg p.o. daily. 2. Cefzol 2 g IV q.8h. 3. Lovenox 40 mg subcu daily. 4. Protonix 40 mg p.o. daily. 5. IV fluids. PHYSICAL EXAM: Patient is alert, oriented x3. Pulse is 67, blood pressure 175/81, respiration 18, temperature 97.2, pulse ox 98% on room air. HEENT conjunctivae normal. Oral mucosa moist. Neck is no jugular venous distention. No carotid bruit. No lymph node enlargement. Cardiovascular systems: S1, S2. Respiration: Breath sounds diminished in the bases. Scattered rhonchi and crackles. ABDOMEN: Soft, nontender. Legs are no edema. No swelling. Nervous system: Diffusely weak. LABS: WBC 3.8, hemoglobin 9.4. ASSESSMENT: 1. Acute urinary tract infection. 2. Staph aureus sepsis. 3. HIV and AIDS. 4. Acute kidney injury. 5. Hypertension. 6. History of dementia. 7. History of THC. RECOMMENDATION AND DISCUSSION: In this 71-year-old gentleman who was admitted with multiple medical issues, at this time I recommend to continue current medications, symptomatic treatment. I would also recommend a CT scan of the brain without contrast as a baseline and also recommend continued IV antibiotics. boning room worker to address the issues for arranging outpatient antibiotics. Other than that, the prognosis is guarded and currently the patient is on Norvasc 10 daily. I would also add clonidine to the current regimen as well. As mentioned earlier, prognosis guarded. Further recommendations to follow. See orders for details. Also recommend close follow up with the primary physician in the outpatient setting. MMODL / IJN: [id number] /
[2017-07-11] MEDS: ceFAZolin IN SWFI 2 GM/20 ML SYRINGE IVP SCH ×3 (06:18→18:08)
--- NOTE | 2017-07-11 07:33 | P.PN ---
Subjective Progress Note Date: 07/10/17 Principal diagnosis: fever 71 year old male relates to a several week history of declining overall health. He started to feel weaker, difficulty with eating but denies nausea or emesis disorderly poor appetite. He also related that he was having some urinary symptoms with cloudy malodorous urine and some discomfort. Because of his significant worsening status weakness and even some confusion as per the he was brought to the emergency center and was admitted with concerns to sepsis. The patient then had evidence of a positive blood culture and a positive urine culture and with this the infectious diseases consultation was requested. The patient himself is somewhat of a poor historian and I do have the opportunity to talk to his significant other. The patient apparently has a history of known HIV positivity for some time. However he had called it a false positive test for some time. In his significant other have been tested and she is negative. The patient however is now had approximately 50 pound weight loss, please had significant worsening of his overall status and even his mentation has worsened disease become weak and quite feeble. This apparently is quite different than his usual health. 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 Apparently it's only in the last 6 months that he's had such a rapid decline of his status. July 09 2017 reveals the patient to more comfortable. His fevers and chills and improved. Denies acute new urinary symptoms. Wheezing is improved. He has many questions which were answered. 07/10/2017 patient were comfortable with fever has resolved continues to feel poorly overall however has significant generalized weakness but is able to get to the restroom without difficulty. The social work professor and case management team are working diligently on his discharge plan is very complicated because of his need for IV antibiotic therapy because of his MSSA sepsis and to initiate HIV therapy. Objective - Vital Signs Vital signs: Vital Signs Temp 97.9 F 07/10/17 20:30 Pulse 67 07/11/17 00:00 Resp 18 07/11/17 00:00 BP 168/74 07/10/17 20:30 Pulse Ox 95 07/10/17 20:30 Intake & Output 07/10/17 07/11/17 07/11/17 18:59 06:59 18:59 Intake Total 1190 Output Total 2 Balance 1188 Weight 61.689 kg Intake: Intake, IV Titration 650 Amount Sodium Chloride 0.9% 1, 650 000 ml @ 100 mls/hr IV . Q10H ALEJANDRO Rx#:[id number] Oral 540 Output: Urine 2 Other: Voiding Method Toilet Urinal # Voids 4 1 - Exam 71-year-old male with a very thin build HEENT: Anicteric conjunctiva are pink and moist nasal mucosa grossly intact without significant lesions, there is no thrush. Dentition is poor Neck: The neck is supple without significant lymphadenopathy or thyromegaly. Lungs: Symmetrical air entry is noted with expiratory wheezes but no migue bronchial sounds no dullness or egophony Heart: Regular rate and rhythm with an audible S1-S2, no S3 no S4. There is no significant murmur click or rub, PMI was nondisplaced. Abdomen: Scaphoid, Positive bowel sounds soft and nontender without palpable masses or organomegaly. There was no guarding or rebound. Extremities: The upper extremities have excellent pulses they are symmetric, no significant petechiae or telangiectasia. No splinter hemorrhages were noted. The lower extremities are free from significant edema. The peripheral pulses were 2+ and symmetric. Neuro: Awake alert oriented to person and place, able to follow simple commands. Does not have acute gross focal sensory motor deficits, recall is poor - Labs CBC & Chem 7: 07/09/17 07:25 07/09/17 07:25 Labs: Abnormal Lab Results - Last 24 Hours (Table) 07/07/17 Range/Units 07:00 HIV-1 RNA Quant 713,110 H (<40) Copies/mL HIV RNA logcopies/mL Ult 5.85 H (<1.60) HIV-1 RNA (PCR) DETECTED H (Not detected) Microbiology - Last 24 Hours (Table) 07/06/17 09:39 Blood Culture - Preliminary Blood No Growth after 96 hours Laboratory Results WBC 3.8 k/uL (3.8-10.6) 07/09/17 07:25 RBC 3.60 m/uL (4.30-5.90) L 07/09/17 07:25 Hgb 9.4 gm/dL (13.0-17.5) L 07/09/17 07:25 Hct 29.2 % (39.0-53.0) L 07/09/17 07:25 MCV 81.3 fL (80.0-100.0) 07/09/17 07:25 MCH 26.1 pg (25.0-35.0) 07/09/17 07:25 MCHC 32.1 g/dL (31.0-37.0) 07/09/17 07:25 RDW 15.3 % (11.5-15.5) 07/09/17 07:25 Plt Count 198 k/uL (150-450) 07/09/17 07:25 Neutrophils % 61 % 07/09/17 07:25 Lymphocytes % 28 % 07/09/17 07:25 Monocytes % 8 % 07/09/17 07:25 Eosinophils % 1 % 07/09/17 07:25 Basophils % 0 % 07/09/17 07:25 Neutrophils # 2.3 k/uL (1.3-7.7) 07/09/17 07:25 Lymphocytes # 1.1 k/uL (1.0-4.8) 07/09/17 07:25 Monocytes # 0.3 k/uL (0-1.0) 07/09/17 07:25 Eosinophils # 0.1 k/uL (0-0.7) 07/09/17 07:25 Basophils # 0.0 k/uL (0-0.2) 07/09/17 07:25 Poikilocytosis Slight 07/08/17 06:52 PT 10.7 sec (9.0-12.0) 07/04/17 18:48 INR 1.1 (<1.2) 07/04/17 18:48 APTT 25.3 sec (22.0-30.0) 07/04/17 18:48 Sodium 144 mmol/L (137-145) 07/09/17 07:25 Potassium 3.6 mmol/L (3.5-5.1) 07/09/17 07:25 Chloride 112 mmol/L (98-107) H 07/09/17 07:25 Carbon Dioxide 20 mmol/L (22-30) L 07/09/17 07:25 Anion Gap 12 mmol/L 07/09/17 07:25 BUN 13 mg/dL (9-20) 07/09/17 07:25 Creatinine 0.99 mg/dL (0.66-1.25) 07/09/17 07:25 Est GFR (CKD-EPI)AfAm 89 (>60 ml/min/1.73 sqM) 07/09/17 07:25 Est GFR (CKD-EPI)NonAf 77 (>60 ml/min/1.73 sqM) 07/09/17 07:25 Glucose 92 mg/dL (74-99) 07/09/17 07:25 Plasma Lactic Acid Robb 0.9 mmol/L (0.7-2.0) 07/04/17 18:48 Calcium 8.4 mg/dL (8.4-10.2) 07/09/17 07:25 Phosphorus 3.9 mg/dL (2.5-4.5) 07/04/17 18:24 Magnesium 1.7 mg/dL (1.6-2.3) 07/09/17 07:25 Total Bilirubin 0.7 mg/dL (0.2-1.3) 07/04/17 18:24 AST 22 U/L (17-59) 07/04/17 18:24 ALT 13 U/L (21-72) L 07/04/17 18:24 Alkaline Phosphatase 139 U/L (38-126) H 07/04/17 18:24 Total Creatine Kinase 81 U/L (55-170) 07/04/17 18:24 CK-MB (CK-2) <0.2 ng/mL (0.0-2.4) 07/04/17 18:24 CK-MB (CK-2) Rel Index 07/04/17 18:24 Troponin I 0.013 ng/mL (0.000-0.034) 07/04/17 18:24 Total Protein 8.5 g/dL (6.3-8.2) H 07/04/17 18:24 Albumin 3.7 g/dL (3.5-5.0) 07/04/17 18:24 Urine Color Yellow 07/04/17 22:00 Urine Appearance Cloudy (Clear) 07/04/17 22:00 Urine pH 5.5 (5.0-8.0) 07/04/17 22:00 Ur Specific Baxter 1.014 (1.001-1.035) 07/04/17 22:00 Urine Protein 1+ (Negative) H 07/04/17 22:00 Urine Glucose (UA) Negative (Negative) 07/04/17 22:00 Urine Ketones Negative (Negative) 07/04/17 22:00 Urine Blood Moderate (Negative) H 07/04/17 22:00 Urine Nitrite Positive (Negative) 07/04/17 22:00 Urine Bilirubin Negative (Negative) 07/04/17 22:00 Urine Urobilinogen <2.0 mg/dL (<2.0) 07/04/17 22:00 Ur Leukocyte Esterase Large (Negative) H 07/04/17 22:00 Urine WBC 22 /hpf (0-5) H 07/04/17 22:00 Urine WBC Clumps Rare /hpf (None) H 07/04/17 22:00 Amorphous Sediment Rare /hpf (None) H 07/04/17 22:00 Urine Bacteria Moderate /hpf (None) H 07/04/17 22:00 Hyaline Casts 7 /lpf (0-2) H 07/04/17 22:00 Granular Casts 3 /lpf (0) 07/04/17 22:00 Urine Mucus Few /hpf (None) H 07/04/17 22:00 HIV-1 RNA Quant 713,110 Copies/mL (<40) H 07/07/17 07:00 HIV RNA logcopies/mL Ult 5.85 (<1.60) H 07/07/17 07:00 HIV-1 RNA (PCR) DETECTED (Not detected) H 07/07/17 07:00 Influenza Type A RNA Not Detected (Not Detectd) 07/04/17 18:30 Influenza Type B (PCR) Not Detected (Not Detectd) 07/04/17 18:30 Microbiology 07/06/17 09:39 Blood Blood Culture - Preliminary No Growth after 96 hours 07/05/17 17:29 Blood Blood Culture Gram Stain - Final 07/05/17 17:29 Blood Blood Culture - Final Staphylococcus aureus 07/04/17 18:48 Blood Blood Culture Gram Stain - Final 07/04/17 18:48 Blood Blood Culture - Final Staphylococcus aureus 07/04/17 22:00 Urine,Catheterized Urine Culture - Final Staphylococcus aureus 07/05/17 19:29 Blood Blood Culture - Final 07/04/17 18:48 Blood Blood Culture - Final Assessment and Plan (1) Bacteremia due to Staphylococcus aureus Narrative/Plan: 71-year-old male presents to Hospital feeling very poorly with evidence of underlying infection. Urinalysis was abnormal and urine culture as well as blood cultures are noted to be positive. Laboratories now relating that staph aureus has been isolated. With this intravenous antibiotic therapy with daptomycin was initiated given the patient's elevated creatinine and desire to avoid vancomycin therapy given his significant and worsening frailty. Follow blood cultures are been requested. The patient does have outpatient testing shows evidence of positive HIV status which is confirmed and a very low CD4 count of 89 which does categorize him as AIDS. This is discussed with the patient and his significant other. They impaired that he is treated is discussed and without treatment with his current illnesses would likely result in rapid decline and his demise. The patient seems to be willing to initiate therapy with St[facility] and this is requested. Baseline viral load and genotype is also requested. Being that he's never been treated Stribild likely would be an effective choice. As noted follow blood cultures are requested. If further positive blood cultures are found then and echocardiogram will be needed. The patient and significant other denies history of injection drug use. The potential renal source of his bacteremia is noted and renal ultrasound will be requested given the current level of illness. 07/09/2017 reveals the patient to be feeling somewhat better. Renal ultrasound has been done without evidence of any obstruction in the urinary system. He is denying any new urinary symptoms and his fevers and chills are resolved. Initial levels improving. But he still feels quite ill overall. It is time we discussed that he has MSSA bacteremia likely in the bases of his renal infection. We'll need to weeks of intravenous antibiotic therapy and this can be transitioned Rocephin when he is discharged home. Midline catheter was requested for his IV access given that it's 2 weeks and antibiotic his Rocephin. [facility]'ll come to [facility]. Working with the social work professor and case management today given the significant difficulties with his history of appointment and his insurance status, he is 71 and should have Medicare. We are working with the local ADAP program to ensure that he is enrolled lability received his oral HIV medications shortly after his discharge. Stribild is chosen if possible. Patient is aware that we're waiting for all these arrangements to be made for him to have optimal therapy. 07/10/2017 is some improvement. Patient's follow blood cultures are negative. Midline catheter placed so the antibiotic therapy may be completed for his MSSA sepsis which appears to be from his urinary system. He is not having significant urinary symptoms at this time. Case management and social work are diligently attempting to determine the patient's status and get him signed up for ADAP. The viral load has come back high as expected, genotype is pending given no prior treatment should have no difficulty initiating Strib[facility] Once his insurance is been verified. The discharge team has been working with the family and attempting to get them involved in the post hospital care process. 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
[2017-07-11] MEDS: STRIBILD PO SCH (07:55)
[2017-07-11] MEDS: PANTOPRAZOLE 40 MG TABLET PO SCH (07:56)
[2017-07-11] MEDS: amLODIPine 10 MG TAB PO SCH (07:57)
[2017-07-11] MEDS: cloNIDine HCL 0.1 MG TAB PO SCH ×2 (07:58→18:08)
[2017-07-11] MEDS: ENOXAPARIN 40 MG/0.4 ML SYRINGE SQ SCH (07:58)
[2017-07-11 15:49] VITALS: BP 143/65; PULSE 58; RESP 16; TEMP 98.3
[2017-07-11] MEDS ORDERED: cefTRIAXone IN SWFI 2,000 MG/20 ML SYRINGE IVP SCH (17:00)
--- NOTE | 2017-07-11 22:33 | P.PN ---
Subjective Progress Note Date: 07/11/17 Principal diagnosis: fever 71 year old male relates to a several week history of declining overall health. He started to feel weaker, difficulty with eating but denies nausea or emesis disorderly poor appetite. He also related that he was having some urinary symptoms with cloudy malodorous urine and some discomfort. Because of his significant worsening status weakness and even some confusion as per the he was brought to the emergency center and was admitted with concerns to sepsis. The patient then had evidence of a positive blood culture and a positive urine culture and with this the infectious diseases consultation was requested. The patient himself is somewhat of a poor historian and I do have the opportunity to talk to his significant other. The patient apparently has a history of known HIV positivity for some time. However he had called it a false positive test for some time. In his significant other have been tested and she is negative. The patient however is now had approximately 50 pound weight loss, please had significant worsening of his overall status and even his mentation has worsened disease become weak and quite feeble. This apparently is quite different than his usual health. 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 Apparently it's only in the last 6 months that he's had such a rapid decline of his status. July 09 2017 reveals the patient to more comfortable. His fevers and chills and improved. Denies acute new urinary symptoms. Wheezing is improved. He has many questions which were answered. 07/10/2017 patient were comfortable with fever has resolved continues to feel poorly overall however has significant generalized weakness but is able to get to the restroom without difficulty. The marriage and family social worker and case management team are working diligently on his discharge plan is very complicated because of his need for IV antibiotic therapy because of his MSSA sepsis and to initiate HIV therapy. 07/11/2017 patient has further improvement. Arrangements have been made for him to complete his course of intravenous antibiotic therapy at home with daily Rocephin. Objective - Vital Signs Vital signs: Vital Signs Temp 98.3 F 07/11/17 15:39 Pulse 58 L 07/11/17 16:30 Resp 16 07/11/17 16:30 BP 143/65 07/11/17 15:39 Pulse Ox 94 L 07/11/17 15:39 Intake & Output 04/07/11/17 07/12/17 06:59 18:59 06:59 Output Total 500 Balance -500 Output: Urine 500 Other: Voiding Method Urinal Toilet Urinal # Voids 1 - Exam 71-year-old male with a very thin build HEENT: Anicteric conjunctiva are pink and moist nasal mucosa grossly intact without significant lesions, there is no thrush. Dentition is poor Neck: The neck is supple without significant lymphadenopathy or thyromegaly. Lungs: Symmetrical air entry is noted with expiratory wheezes but no migue bronchial sounds no dullness or egophony Heart: Regular rate and rhythm with an audible S1-S2, no S3 no S4. There is no significant murmur click or rub, PMI was nondisplaced. Abdomen: Scaphoid, Positive bowel sounds soft and nontender without palpable masses or organomegaly. There was no guarding or rebound. Extremities: The upper extremities have excellent pulses they are symmetric, no significant petechiae or telangiectasia. No splinter hemorrhages were noted. The lower extremities are free from significant edema. The peripheral pulses were 2+ and symmetric. Neuro: Awake alert oriented to person and place, able to follow simple commands. Does not have acute gross focal sensory motor deficits, recall is poor - Labs CBC & Chem 7: 07/09/17 07:25 07/09/17 07:25 Labs: Microbiology - Last 24 Hours (Table) 07/06/17 09:39 Blood Culture - Preliminary Blood No Growth after 120 hours Laboratory Results WBC 3.8 k/uL (3.8-10.6) 07/09/17 07:25 RBC 3.60 m/uL (4.30-5.90) L 07/09/17 07:25 Hgb 9.4 gm/dL (13.0-17.5) L 07/09/17 07:25 Hct 29.2 % (39.0-53.0) L 07/09/17 07:25 MCV 81.3 fL (80.0-100.0) 07/09/17 07:25 MCH 26.1 pg (25.0-35.0) 07/09/17 07:25 MCHC 32.1 g/dL (31.0-37.0) 07/09/17 07:25 RDW 15.3 % (11.5-15.5) 07/09/17 07:25 Plt Count 198 k/uL (150-450) 07/09/17 07:25 Neutrophils % 61 % 07/09/17 07:25 Lymphocytes % 28 % 07/09/17 07:25 Monocytes % 8 % 07/09/17 07:25 Eosinophils % 1 % 07/09/17 07:25 Basophils % 0 % 07/09/17 07:25 Neutrophils # 2.3 k/uL (1.3-7.7) 07/09/17 07:25 Lymphocytes # 1.1 k/uL (1.0-4.8) 07/09/17 07:25 Monocytes # 0.3 k/uL (0-1.0) 07/09/17 07:25 Eosinophils # 0.1 k/uL (0-0.7) 07/09/17 07:25 Basophils # 0.0 k/uL (0-0.2) 07/09/17 07:25 Poikilocytosis Slight 07/08/17 06:52 PT 10.7 sec (9.0-12.0) 07/04/17 18:48 INR 1.1 (<1.2) 07/04/17 18:48 APTT 25.3 sec (22.0-30.0) 07/04/17 18:48 Sodium 144 mmol/L (137-145) 07/09/17 07:25 Potassium 3.6 mmol/L (3.5-5.1) 07/09/17 07:25 Chloride 112 mmol/L (98-107) H 07/09/17 07:25 Carbon Dioxide 20 mmol/L (22-30) L 07/09/17 07:25 Anion Gap 12 mmol/L 07/09/17 07:25 BUN 13 mg/dL (9-20) 07/09/17 07:25 Creatinine 0.99 mg/dL (0.66-1.25) 07/09/17 07:25 Est GFR (CKD-EPI)AfAm 89 (>60 ml/min/1.73 sqM) 07/09/17 07:25 Est GFR (CKD-EPI)NonAf 77 (>60 ml/min/1.73 sqM) 07/09/17 07:25 Glucose 92 mg/dL (74-99) 07/09/17 07:25 Plasma Lactic Acid Robb 0.9 mmol/L (0.7-2.0) 07/04/17 18:48 Calcium 8.4 mg/dL (8.4-10.2) 07/09/17 07:25 Phosphorus 3.9 mg/dL (2.5-4.5) 07/04/17 18:24 Magnesium 1.7 mg/dL (1.6-2.3) 07/09/17 07:25 Total Bilirubin 0.7 mg/dL (0.2-1.3) 07/04/17 18:24 AST 22 U/L (17-59) 07/04/17 18:24 ALT 13 U/L (21-72) L 07/04/17 18:24 Alkaline Phosphatase 139 U/L (38-126) H 07/04/17 18:24 Total Creatine Kinase 81 U/L (55-170) 07/04/17 18:24 CK-MB (CK-2) <0.2 ng/mL (0.0-2.4) 07/04/17 18:24 CK-MB (CK-2) Rel Index 07/04/17 18:24 Troponin I 0.013 ng/mL (0.000-0.034) 07/04/17 18:24 Total Protein 8.5 g/dL (6.3-8.2) H 07/04/17 18:24 Albumin 3.7 g/dL (3.5-5.0) 07/04/17 18:24 Urine Color Yellow 07/04/17 22:00 Urine Appearance Cloudy (Clear) 07/04/17 22:00 Urine pH 5.5 (5.0-8.0) 07/04/17 22:00 Ur Specific Geff 1.014 (1.001-1.035) 07/04/17 22:00 Urine Protein 1+ (Negative) H 07/04/17 22:00 Urine Glucose (UA) Negative (Negative) 07/04/17 22:00 Urine Ketones Negative (Negative) 07/04/17 22:00 Urine Blood Moderate (Negative) H 07/04/17 22:00 Urine Nitrite Positive (Negative) 07/04/17 22:00 Urine Bilirubin Negative (Negative) 07/04/17 22:00 Urine Urobilinogen <2.0 mg/dL (<2.0) 07/04/17 22:00 Ur Leukocyte Esterase Large (Negative) H 07/04/17 22:00 Urine WBC 22 /hpf (0-5) H 07/04/17 22:00 Urine WBC Clumps Rare /hpf (None) H 07/04/17 22:00 Amorphous Sediment Rare /hpf (None) H 07/04/17 22:00 Urine Bacteria Moderate /hpf (None) H 07/04/17 22:00 Hyaline Casts 7 /lpf (0-2) H 07/04/17 22:00 Granular Casts 3 /lpf (0) 07/04/17 22:00 Urine Mucus Few /hpf (None) H 07/04/17 22:00 HIV-1 RNA Quant 713,110 Copies/mL (<40) H 07/07/17 07:00 HIV RNA logcopies/mL Ult 5.85 (<1.60) H 07/07/17 07:00 HIV-1 RNA (PCR) DETECTED (Not detected) H 07/07/17 07:00 Influenza Type A RNA Not Detected (Not Detectd) 07/04/17 18:30 Influenza Type B (PCR) Not Detected (Not Detectd) 07/04/17 18:30 - Imaging and Cardiology Chest x-ray: report reviewed CT Scan - head: report reviewed (Age-related changes) Assessment and Plan (1) Bacteremia due to Staphylococcus aureus Narrative/Plan: 71-year-old male presents to Hospital feeling very poorly with evidence of underlying infection. Urinalysis was abnormal and urine culture as well as blood cultures are noted to be positive. Laboratories now relating that staph aureus has been isolated. With this intravenous antibiotic therapy with daptomycin was initiated given the patient's elevated creatinine and desire to avoid vancomycin therapy given his significant and worsening frailty. Follow blood cultures are been requested. The patient does have outpatient testing shows evidence of positive HIV status which is confirmed and a very low CD4 count of 89 which does categorize him as AIDS. This is discussed with the patient and his significant other. They impaired that he is treated is discussed and without treatment with his current illnesses would likely result in rapid decline and his demise. The patient seems to be willing to initiate therapy with Stribild and this is requested. Baseline viral load and genotype is also requested. Being that he's never been treated Stribild likely would be an effective choice. As noted follow blood cultures are requested. If further positive blood cultures are found then and echocardiogram will be needed. The patient and significant other denies history of injection drug use. The potential renal source of his bacteremia is noted and renal ultrasound will be requested given the current level of illness. 07/09/2017 reveals the patient to be feeling somewhat better. Renal ultrasound has been done without evidence of any obstruction in the urinary system. He is denying any new urinary symptoms and his fevers and chills are resolved. Initial levels improving. But he still feels quite ill overall. It is time we discussed that he has MSSA bacteremia likely in the bases of his renal infection. We'll need to weeks of intravenous antibiotic therapy and this can be transitioned Rocephin when he is discharged home. Midline catheter was requested for his IV access given that it's 2 weeks and antibiotic his Rocephin. [facility] Working with the marriage and family social worker and case management today given the significant difficulties with his history of appointment and his insurance status, he is 71 and should have Medicare. We are working with the local ADAP program to ensure that he is enrolled lability received his oral HIV medications shortly after his discharge. [facility] is chosen if possible. Patient is aware that we're waiting for all these arrangements to be made for him to have optimal therapy. 07/10/2017 is some improvement. Patient's follow blood cultures are negative. Midline catheter placed so the antibiotic therapy may be completed for his MSSA sepsis which appears to be from his urinary system. He is not having significant urinary symptoms at this time. Case management and social work are diligently attempting to determine the patient's status and get him signed up for ADAP. The viral load has come back high as expected, genotype is pending given no prior treatment should have no difficulty initiating Stribild Once his insurance is been verified. The discharge team has been working with the family and attempting to get them involved in the post hospital care process. 07/11/2017 reveals the patient to be stable to improved. He is definitely feeling better overall. No fevers or chills. Mentation is improved. Discharge planning and social work and worked diligently with the outpatient community to get him set up for his home intravenous antibiotic therapy. I also set him up with ADAP so that he may receive his outpatient HIV medications , stribild has been requested and should hopefully start quite soon. As noted his CD4 count is low, age range with a high viral load. He'll follow-up in the office after his discharge. 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
--- NOTE | 2017-07-11 23:29 | DS ---
DISCHARGE SUMMARY FINAL DIAGNOSES: 1. Acute urinary tract infection. 2. Staphylococcus aureus sepsis. 3. HIV and AIDS. 4. Acute kidney injury. 5. Hypertension. 6. History of dementia. 7. History of THC. DISCHARGE CONDITION: The patient is being discharged in stable condition with guarded prognosis. HISTORY OF PRESENT ILLNESS: This 71-year-old gentleman with a past medical history of multiple medical problems was admitted with acute urinary tract infection as well as multiple other medical issues. He was treated with antibiotics. The patient had a PICC line placement. The patient will be discharged in stable condition with guarded prognosis. HIV treatment is also arranged as outpatient by Dr. Barbour. On exam, vital signs are stable. Cardiovascular, S1 and S2. Abdomen is soft. Nervous system, no focal deficits. DISCHARGE INSTRUCTIONS: 1. Diet is cardiac. 2. Activity is limited. FOLLOWUP: 1. Follow up with Dr. Morgan Turner in 2 to 3 days. 2. Follow up with Dr. Barbour as recommended. MEDICATIONS: 1. Norvasc 10 mg p.o. daily. 2. Rocephin 2 g IV daily for 11 days. 3. Catapres 0.1 p.o. t.i.d. 4. Protonix 40 mg p.o. daily. Once again, the patient is being discharged in stable condition with guarded prognosis. MMODL / IJN: [id number] /
== END 2017-07-11 19:25 | disposition home or self-care (01) | DRG 975 ==
LOC: EC 17:25 → 5MS5E 20:08 → OBSVTOIN 07-06 08:45
PROVIDERS: ADMIT Hospitalist; ATTEND Hospitalist
DX: A41.01 Sepsis due to Methicillin susceptible Staphylococcus aureus (principal); B20 Human immunodeficiency virus [HIV] disease; N17.9 Acute kidney failure, unspecified; N39.0 Urinary tract infection, site not specified; F17.200 Nicotine dependence, unspecified, uncomplicated; I10 Essential (primary) hypertension; F03.90 Unspecified dementia, unspecified severity, without behavioral disturbance, psychotic disturbance, mood disturbance, and anxiety; I25.10 Atherosclerotic heart disease of native coronary artery without angina pectoris; E86.0 Dehydration
CPT/HCPCS: 00000; 36415; 70450; 71046; 76770; 80048; 80053; 81001; 82550; 82553; 83605; 83735; 84100; 84484; 85025; 85610; 85730; 87040; 87077; 87086; 87186; 87502; 87536; 87901; 93005; 93306; 96361; 96365; 99285

== ENCOUNTER → 2017-08-09 | Outpatient (CLI) | payer SELFPAY ==
[2017-08-09 16:23] LABS: Anisocytosis Slight; Basophils # (A) 0.1 k/uL (0-0.2); Basophils % (A) 1 %; Eosinophils # (A) 0.8 k/uL (0-0.7); Eosinophils % (A) 11 %; HGB 10.8 gm/dL (13.0-17.5); Lymphocytes # (A) 2.1 k/uL (1.0-4.8); Lymphocytes % (A) 31 %; MCHC 31.6 g/dL (31.0-37.0); MCV 85.4 fL (80.0-100.0); Mean Platelet Volume 6.5; Monocytes # (A) 0.4 k/uL (0-1.0); Monocytes % (A) 6 %; Neutrophils # (A) 3.5 k/uL (1.3-7.7); Neutrophils % (A) 50 %; Platelet Count 323 k/uL (150-450); RBC 3.98 m/uL (4.30-5.90); RDW 16.8 % (11.5-15.5)
[2017-08-09 16:30] LABS: Albumin 4.1 g/dL (3.5-5.0); Calcium 9.9 mg/dL (8.4-10.2); Potassium 5.4 mmol/L (3.5-5.1); Total Bilirubin 0.5 mg/dL (0.2-1.3); Total Protein 8.5 g/dL (6.3-8.2)
[2017-08-10 12:18] LABS: T4/T8 Ratio (CD4:CD8) 0.2 (1.0-3.7)
[2017-08-10 14:06] LABS: HIV-1 RNA DETECTED (Not detected); HIV-1 RNA, Quant 116 Copies/mL (<40)
== END ==
LOC: LABWHC1 14:54
PROVIDERS: ATTEND Internal Medicine Infectious Disease
DX: B20 Human immunodeficiency virus [HIV] disease (principal)
CPT/HCPCS: 36415; 80053; 85025; 86360; 87536

== ENCOUNTER → 2017-09-27 | Outpatient (CLI) | payer SELFPAY ==
[2017-09-27 13:15] LABS: Anisocytosis Slight; Basophils % (A) 1 %; Eosinophils # (A) 0.6 k/uL (0-0.7); Eosinophils % (A) 10 %; HCT 33.3 % (39.0-53.0); Lymphocytes # (A) 1.9 k/uL (1.0-4.8); Lymphocytes % (A) 34 %; MCH 28.7 pg (25.0-35.0); MCV 86.9 fL (80.0-100.0); Mean Platelet Volume 6.4; Monocytes # (A) 0.4 k/uL (0-1.0); Monocytes % (A) 7 %; Neutrophils # (A) 2.7 k/uL (1.3-7.7); Neutrophils % (A) 47 %; Platelet Count 256 k/uL (150-450); RBC 3.82 m/uL (4.30-5.90); RDW 16.1 % (11.5-15.5); WBC 5.7 k/uL (3.8-10.6)
[2017-09-27 13:32] LABS: Albumin 3.9 g/dL (3.5-5.0); Calcium 9.4 mg/dL (8.4-10.2); Potassium 4.5 mmol/L (3.5-5.1); Total Bilirubin 0.4 mg/dL (0.2-1.3); Total Protein 7.9 g/dL (6.3-8.2)
[2017-09-28 12:41] LABS: T4/T8 Ratio (CD4:CD8) 0.2 (1.0-3.7)
== END | disposition home or self-care (01) ==
LOC: LABWHC1 12:15
PROVIDERS: ATTEND Internal Medicine Infectious Disease
DX: B20 Human immunodeficiency virus [HIV] disease (principal)
CPT/HCPCS: 36415; 80053; 83540; 85025; 86360; 87536

== ENCOUNTER → 2018-01-14 | Outpatient (CLI) | payer SELFPAY ==
[2018-01-14 16:10] LABS: Albumin 4.1 g/dL (3.5-5.0); Basophils # (A) 0.1 k/uL (0-0.2); Basophils % (A) 1 %; Calcium 9.5 mg/dL (8.4-10.2); Eosinophils # (A) 0.2 k/uL (0-0.7); Eosinophils % (A) 4 %; HCT 37.6 % (39.0-53.0); HGB 12.1 gm/dL (13.0-17.5); Lymphocytes # (A) 1.7 k/uL (1.0-4.8); Lymphocytes % (A) 36 %; MCH 28.8 pg (25.0-35.0); MCHC 32.3 g/dL (31.0-37.0); MCV 89.2 fL (80.0-100.0); Mean Platelet Volume 6.3; Monocytes # (A) 0.3 k/uL (0-1.0); Monocytes % (A) 6 %; Neutrophils # (A) 2.5 k/uL (1.3-7.7); Neutrophils % (A) 51 %; Platelet Count 275 k/uL (150-450); Potassium 4.5 mmol/L (3.5-5.1); RBC 4.21 m/uL (4.30-5.90); RDW 14.1 % (11.5-15.5); Total Bilirubin 0.5 mg/dL (0.2-1.3); Total Protein 8.3 g/dL (6.3-8.2); WBC 4.8 k/uL (3.8-10.6)
[2018-01-15 10:53] LABS: T4/T8 Ratio (CD4:CD8) 0.2 (1.0-3.7)
[2018-01-16 14:03] LABS: HIV-1 RNA DETECTED (Not detected); HIV-1 RNA, Quant <40 Copies/mL (<40)
== END | disposition home or self-care (01) ==
LOC: LABWHC1 14:35
PROVIDERS: ATTEND Internal Medicine Infectious Disease
DX: B20 Human immunodeficiency virus [HIV] disease (principal)
CPT/HCPCS: 36415; 80053; 85025; 86360; 87536

== ENCOUNTER 2018-06-09 00:52 | Emergency (ER) | payer OTHER ==
[2018-06-09 01:01] VITALS: TEMP 97.9
[2018-06-09 01:52] LABS: Basophils % (A) 1 %; Eosinophils # (A) 0.3 k/uL (0-0.7); Eosinophils % (A) 4 %; HCT 40.4 % (39.0-53.0); HGB 13.2 gm/dL (13.0-17.5); Lymphocytes # (A) 1.6 k/uL (1.0-4.8); Lymphocytes % (A) 26 %; MCH 28.6 pg (25.0-35.0); MCHC 32.6 g/dL (31.0-37.0); MCV 87.7 fL (80.0-100.0); Mean Platelet Volume 5.9; Monocytes # (A) 0.3 k/uL (0-1.0); Monocytes % (A) 5 %; Neutrophils # (A) 3.7 k/uL (1.3-7.7); Neutrophils % (A) 62 %; Platelet Count 267 k/uL (150-450); RBC 4.61 m/uL (4.30-5.90); RDW 14.5 % (11.5-15.5)
[2018-06-09 02:04] LABS: ALT 24 U/L (21-72); AST 33 U/L (17-59); Alcohol <10 mg/dL; Alkaline Phosphatase 72 U/L (38-126); Anion Gap 10 mmol/L; Blood Urea Nitrogen 37 mg/dL (9-20); Calcium 9.6 mg/dL (8.4-10.2); Carbon Dioxide 21 mmol/L (22-30); Chloride 109 mmol/L (98-107); Glucose 126 mg/dL (74-99); Sodium 140 mmol/L (137-145); Total Bilirubin 0.6 mg/dL (0.2-1.3); Total Protein 8.4 g/dL (6.3-8.2)
[2018-06-09 02:08] LABS: Potassium 4.6 mmol/L (3.5-5.1)
--- NOTE | 2018-06-09 02:23 | CT ---
EXAM: CT Head Without Intravenous Contrast CLINICAL HISTORY: ITS.REASON CT Reason: seizure activity TECHNIQUE: Axial computed tomography images of the head/brain without intravenous contrast. DLP is 1113.4 mGy-cm. This CT exam was performed using one or more of the following dose reduction techniques: automated exposure control, adjustment of the mA and/or kV according to patient size, and/or use of iterative reconstruction technique. COMPARISON: 07/10/17 FINDINGS: Brain: No hemorrhage. Involutional changes. No mass effect. White matter hypodensities. Sanders white junction preserved. Ventricles: Age appropriate Sinuses: Well aerated as visualized with mild mucosal thickening. Mastoid air cells: Well aerated as visualized. IMPRESSION: No acute intracranial findings
[2018-06-09] MEDS ORDERED: SODIUM CHLORIDE 0.9% 500 ML 500 ML IV STA (02:28)
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
[2018-06-09 04:52] VITALS: BP 172/86; PULSE 83; RESP 16
== END 2018-06-09 04:52 | disposition home or self-care (01) ==
LOC: EC 00:52
DX: R56.9 Unspecified convulsions (principal); E86.0 Dehydration; R32 Unspecified urinary incontinence; F03.90 Unspecified dementia, unspecified severity, without behavioral disturbance, psychotic disturbance, mood disturbance, and anxiety; F17.200 Nicotine dependence, unspecified, uncomplicated; Z21 Asymptomatic human immunodeficiency virus [HIV] infection status
CPT/HCPCS: 36415; 70450; 80053; 80320; 83605; 85025; 93005; 99285